=== PATIENT | female | born 1950 | race Caucasian/White ===

== ENCOUNTER 2017-08-25 05:53 | Day surgery (SDC) | payer MEDICARE ==
[2017-08-22 15:24] VITALS: BMI 25.2
[2017-08-25] MEDS ORDERED: Diazepam 5 MG TAB ONE (06:34)
[2017-08-25] MEDS ORDERED: Heparin 1000 UNIT/NS 500ML(OR) 1,000 ML ONE (06:40)
[2017-08-25 07:15] LABS: #Basophils 0.1 thou/uL (0.0-0.2); #Eosinphils 0.1 thou/uL (0.0-0.7); #Lymphocytes 2.6 thou/uL (1.20-3.40); #Monocytes 0.8 thou/uL (0.11-0.59); #Neutrophils 5.4 thou/uL (1.40-6.50); %Basophils 0.6 % (0.0-1.0); %Eosinophils 1.6 % (0.0-10.0); %Lymphocytes 28.8 % (21.0-51.0); %Monocytes 8.6 % (0.0-10.0); Hematocrit 37.9 % (36.0-47.0); Mean Platelet Volume 6.5 fL (7.4-10.4); Red Blood Cell (RBC) Count 4.06 mill/uL (4.20-5.40); White Blood Cell (WBC) Count 8.9 thou/uL (4.8-10.8)
[2017-08-25 07:19] LABS: PTT 26.8 SEC (22.9-36.1); Prothrombin Time 13.1 SEC (12.0-14.7)
[2017-08-25 07:34] LABS: ALT (SGPT) 15 U/L (8-55); AST (SGOT) 20 U/L (5-34); Alkaline Phosphatase 100 U/L (40-150); Anion Gap 13 mmol/L (10-20); BUN (Urea Nitrogen) 16 mg/dL (9.8-20.1); Calc. Creatinine Clearance 61 mL/min (70-130); Calcium 9.7 mg/dL (7.8-10.44); Carbon Dioxide 21 mmol/L (23-31); Chloride 106 mmol/L (98-107); Cholesterol 196 mg/dl (< 200 Desired); Estimated GFR-MDRD 57; Globulin 3.2 g/dL (2.4-3.5); LDL Cholesterol, Calculated 113 mg/dL; Protein, Total 7.6 g/dL (6.0-8.3)
[2017-08-25] MEDS ORDERED: Midazolam HCl 2 mg/2 ml Vial ONE ×2 (07:38→07:53)
[2017-08-25] MEDS ORDERED: Fentanyl 100 MCG/2 ML VIAL ONE (07:53)
[2017-08-25] MEDS ORDERED: Heparin 10,000 UNITS/1 ML VIAL ONE (08:27)
[2017-08-25] MEDS ORDERED: Nitroglycerin 100MG/250ML BOT 250 ML ONE (08:27)
[2017-08-25] MEDS ORDERED: Heparin 1000 UNIT/NS 500ML(OR) 500 ML ONE (08:37)
[2017-08-25] MEDS ORDERED: MORPHINE 10 MG/ML SYRINGE ONE (13:38)
[2017-08-25] MEDS ORDERED: Ondansetron HCl/PF 4 MG/2 ML Vial ONE (16:09)
[2017-08-25] MEDS ORDERED: Iopamidol 370 76% 50 ML VIAL FS ONE (17:11)
[2017-08-25] MEDS ORDERED: Iopamidol 370 76% 100 ML VIAL ONE (17:11)
== END 2017-08-25 16:09 | disposition home or self-care (01) ==
LOC: CCL 05:53
PROVIDERS: ATTEND Internal Medicine Cardiovascular Disease
DX: I25.118 Atherosclerotic heart disease of native coronary artery with other forms of angina pectoris (principal); E11.9 Type 2 diabetes mellitus without complications; I25.2 Old myocardial infarction; Z79.84 Long term (current) use of oral hypoglycemic drugs; Z79.82 Long term (current) use of aspirin; Z79.890 Hormone replacement therapy; Z79.899 Other long term (current) drug therapy; Z88.2 Allergy status to sulfonamides; Z95.818 Presence of other cardiac implants and grafts; Z90.49 Acquired absence of other specified parts of digestive tract
CPT/HCPCS: 76942; 80053; 80061; 85025; 85347 ×2; 85610; 85730; 93005 ×2; 93458; 93798; 96374 ×2; C1725; C1769 ×2; C1874; C9600; 36415; 92928; 93010; 99152; 99153; J1644; J2250; J2270; J2405; J3010